=== PATIENT | male | born 1990 | race African-American/Black ===

== ENCOUNTER 2017-05-27 08:31 | Emergency (ER) | payer OTHER ==
[~2017-05-27] VITALS: Ht 185.4 cm; Wt 97.5 kg
[2017-05-27 09:43] LABS: BILIRUBIN NEGATIVE (NEGATIVE); BLOOD TRACE-INTACT (NEGATIVE); CLARITY SL CLOUDY (CLEAR); COLOR YELLOW (YELLOW); GLUCOSE NEGATIVE (NEGATIVE); KETONE NEGATIVE (NEGATIVE); LEUKO ESTERASE TRACE (NEGATIVE); NITRITE NEGATIVE (NEGATIVE); SPECIFIC GRAVITY 1.025 (1.005-1.030); UROBILINOGEN 0.2 E.U./dl (0.2-1.0)
[2017-05-27 10:12] LABS: BACTERIA 2+; RBC 31-40 rbc/hpf (0-2); WBC TNTC wbc/hpf (0-5)
== END 2017-05-27 09:40 | disposition home or self-care (01) ==
LOC: ED 08:31
PROVIDERS: Emergency Medicine
DX: N34.2 Other urethritis (principal)